=== PATIENT | male | born 1965 | race Caucasian/White ===

== ENCOUNTER 2021-01-29 20:52 | Emergency (ER) | payer SELFPAY ==
[2021-01-30] MEDS ORDERED: ACETAMINOPHEN 500 MG TAB PO ONE (02:48)
[2021-01-30] MEDS ORDERED: IBUPROFEN 600 MG TAB PO ONE (02:48)
[2021-01-30 03:19] LABS: Bilirubin,Urine NEG (Negative); Blood,Urine NEG (Negative); Color,Urine Yellow (Yellow); Mucus,Urine FEW /HPF; Protein,Urine <15 mg/dL mg/dL (Negative); RBC,Urine < 1.0 /HPF (0.0-6.0); Urobilinogen,Urine < 2.0 mg/dL (<2.0); WBC,Urine < 1.0 /HPF (0.0-6.0)
--- NOTE | 2021-01-30 03:45 | XRay Report ---
CHEST 2 VIEWS INDICATION / CLINICAL INFORMATION: Cough. COMPARISON: None available. FINDINGS: SUPPORT DEVICES: None. HEART / MEDIASTINUM: The heart size and pulmonary vasculature are normal. LUNGS / PLEURA: No significant pulmonary or pleural abnormality. No pneumothorax. ADDITIONAL FINDINGS: No significant additional findings. IMPRESSION: No acute findings. Signer Name: Michel Hyatt MD Signed: 01/30/2021 3:41 AM Workstation Name: [id number]
[2021-01-30 03:49] LABS: Basophils % (Auto) 0.4 % (0.0-1.8); Eosinophils # (Auto) 0.1 K/mm3 (0.0-0.4); Eosinophils % (Auto) 2.1 % (0.0-4.3); Lymphocytes # (Auto) 1.7 K/mm3 (1.2-5.4); Lymphocytes % (Auto) 29.5 % (13.4-35.0); Mean Corpuscular HGB Conc 30 % (32-34); Mean Corpuscular Volume 76 fl (84-94); Monocytes # (Auto) 0.4 K/mm3 (0.0-0.8); Monocytes % (Auto) 7.6 % (0.0-7.3); Platelet Count 225 K/mm3 (140-440); Red Cell Distribution Width 13.7 % (13.2-15.2)
[2021-01-30 03:52] LABS: Alanine Aminotransferase 14 units/L (7-56); Albumin 4.3 g/dL (3.9-5); BUN/Creatinine Ratio 19; Blood Urea Nitrogen 13 mg/dL (9-20); Calcium 9.2 mg/dL (8.4-10.2); Hemolysis Index 3
[2021-01-30 04:02] LABS: Hemoglobin 12.2 gm/dl (11.8-15.2)
[2021-01-30 04:03] LABS: Hematocrit 40.8 % (35.5-45.6)
--- NOTE | 2021-01-30 04:04 | Emergency Department Report ---
ED General Adult HPI - General Chief complaint: Extremity Injury, Lower Stated complaint: BILATERAL LEG SWELLING Source: EMS Mode of arrival: Ambulatory Limitations: No Limitations - History of Present Illness Initial comments: Patient is a 55-year-old -Prydeinig male with a history of hypertension, chronic osteoarthritis, [id number] diabetes who presents to the ED with complaint of acute exacerbation of his chronic pain characterized by bilateral lower extremity pain, ankle and foot joint pains, bilateral knee joint pain for the last 1 week. Patient states that he is homeless and rarely takes his medications. Patient denies dizziness, syncope, chest pain, shortness of breath, fever, chills, traumatic injury, heavy lifting, nausea and vomiting, numbness and tingling or weakness of lower extremities bilaterally. MD Complaint: Bilateral lower extremity joint pains; generalized weakness -: Sudden, week(s) (1) Location: back, upper extremity, lower extremity Radiation: back Severity scale (0 -10): 10 Quality: aching, sharp Consistency: constant Improves with: none Worsens with: movement Associated Symptoms: denies: denies other symptoms, confusion, chest pain, cough, diaphoresis, headaches, malaise, nausea/vomiting, seizure, shortness of breath, weakness, other Treatments Prior to Arrival: none - Related Data Previous Rx's Medication Instructions Recorded Last Taken Type Baclofen 20 mg PO Q12H PRN #20 tablet 01/30/21 Unknown Rx Naproxen 500 mg PO Q12H PRN #24 tablet 01/30/21 Unknown Rx Allergies Allergy/AdvReac Type Severity Reaction Status Date / Time No Known Allergies Allergy Unverified 01/29/21 21:01 ED Review of Systems ROS: Stated complaint: BILATERAL LEG SWELLING Other details as noted in HPI Constitutional: denies: chills, fever Eyes: denies: eye pain, eye discharge, vision change ENT: denies: ear pain, throat pain Respiratory: denies: cough, shortness of breath, wheezing Cardiovascular: denies: chest pain, palpitations Endocrine: no symptoms reported Gastrointestinal: denies: abdominal pain, nausea, diarrhea Genitourinary: denies: urgency, dysuria Musculoskeletal: back pain, joint swelling (Bilateral ankle and foot swelling), arthralgia (Bilateral knee pain), myalgia Skin: denies: rash, lesions Neurological: denies: headache, weakness, paresthesias Psychiatric: denies: anxiety, depression Hematological/Lymphatic: denies: easy bleeding, easy bruising ED Past Medical Hx - Past Medical History Hx Hypertension: Yes Hx Diabetes: Yes Hx Arthritis: Yes - Social History Smoking Status: Unknown if ever smoked Substance Use Type: Alcohol - Medications Home Medications: Home Medications Medication Instructions Recorded Confirmed Last Taken Type Baclofen 20 mg PO Q12H PRN #20 tablet 01/30/21 Unknown Rx Naproxen 500 mg PO Q12H PRN #24 tablet 01/30/21 Unknown Rx ED Physical Exam - General Limitations: No Limitations General appearance: alert, in no apparent distress - Head Head exam: Present: atraumatic, normocephalic, normal inspection - Eye Eye exam: Present: normal appearance, PERRL, EOMI Pupils: Present: normal accommodation - ENT ENT exam: Present: normal exam, normal orophraynx, mucous membranes moist, TM's normal bilaterally, normal external ear exam - Neck Neck exam: Present: normal inspection, full ROM - Respiratory Respiratory exam: Present: normal lung sounds bilaterally. Absent: respiratory distress, wheezes, stridor, chest wall tenderness, accessory muscle use, prolonged expiratory - Cardiovascular Cardiovascular Exam: Present: regular rate, normal rhythm, normal heart sounds. Absent: bradycardia, tachycardia, irregular rhythm, systolic murmur, diastolic murmur, rubs, gallop - GI/Abdominal GI/Abdominal exam: Present: soft, normal bowel sounds. Absent: tenderness, guarding, hyperactive bowel sounds, hypoactive bowel sounds, organomegaly, mass - Extremities Exam Extremities exam: Present: normal inspection, full ROM, normal capillary refill - Back Exam Back exam: Present: normal inspection, full ROM, tenderness, muscle spasm, paraspinal tenderness. Absent: CVA tenderness (L), vertebral tenderness - Neurological Exam Neurological exam: Present: alert, oriented X3, CN II-XII intact, normal gait, reflexes normal - Psychiatric Psychiatric exam: Present: normal affect, normal mood - Skin Skin exam: Present: warm, dry, intact, normal color. Absent: rash ED Course Vital Signs 01/29/21 01/30/21 01/30/21 21:01 03:03 03:04 Temperature 98.4 F Pulse Rate 88 Respiratory 18 18 18 Rate Blood Pressure 160/92 [Left] O2 Sat by Pulse 98 Oximetry ED Medical Decision Making - Lab Data Result diagrams: 01/30/21 03:05 01/30/21 03:05 - Radiology Data [facility] [address] [place] [address] XRay Report Signed Patient: CHRIS MAURO MR#: [id number] : 1965 Acct:[id number] Age/Sex: 55 / M ADM Date: 01/29/21 Loc: ED Attending Dr: Ordering Physician: CAMILA WILKES Date of Service: 01/30/21 Procedure(s): XR chest routine 2V Accession Number(s): [id number] cc: CAMILA WILKES Fluoro Time In Minutes: CHEST 2 VIEWS INDICATION / CLINICAL INFORMATION: Cough. COMPARISON: None available. FINDINGS: SUPPORT DEVICES: None. HEART / MEDIASTINUM: The heart size and pulmonary vasculature are normal. LUNGS / PLEURA: No significant pulmonary or pleural abnormality. No pneumothorax. ADDITIONAL FINDINGS: No significant additional findings. IMPRESSION: No acute findings. Signer Name: Michel Hyatt MD Signed: 01/30/2021 3:41 AM Workstation Name: [id number] Transcribed By: RT Dictated By: Michel Hyatt MD Electronically Authenticated By: Michel Hyatt MD Signed Date/Time: 01/30/21340 DD/ 9 TD/TT: - Medical Decision Making This is a 55-year-old -Prydeinig male with a history of hypertension, chronic osteoarthritis, [id number] diabetes who presents to the ED with complaint of acute exacerbation of his chronic pain characterized by bilateral lower extremity pain, ankle and foot joint pains, bilateral knee joint pain for the last 1 week. Patient states that he is homeless and rarely takes his medications. In the ED, patient is alert and oriented x3 and is not in any distress. Patient was treated for pain in the ED. Chest x-ray showed no acute cardiopulmonary abnormalities or pneumonitis. All lab test results were reviewed and are all nonactionable. Patient will discharge home on medications and advised to follow-up with his primary care physician in 5 to 7 days for reevaluation. Patient was advised return to the ED immediately if symptoms get worse. - Differential Diagnosis Muscle spasm; muscle strain; chronic pain; osteoarthritis; tendinitis Critical care attestation.: If time is entered above; I have spent that time in minutes in the direct care of this critically ill patient, excluding procedure time. ED Disposition Clinical Impression: Chronic idiopathic pain syndrome, Chronic radicular pain of lower back Disposition: 01 HOME / SELF CARE / HOMELESS Is pt being admited?: No Does the pt Need Aspirin: No Condition: Stable Instructions: Chronic Pain, Adult, Chronic Knee Pain, Adult, [id number], Chronic Back Pain, [id number] Additional Instructions: All lab test results were reviewed and are all are nonactionable. Therefore take medications as needed for pain, drink plenty of fluids and follow-up with your primary care physician in 5 to 7 days for reevaluation. Return to the ED immediately if symptoms get worse. Prescriptions: Baclofen 20 mg PO Q12H PRN #20 tablet PRN Reason: Muscle Spasm Naproxen 500 mg PO Q12H PRN #24 tablet PRN Reason: Pain , Severe (7-10) Time of Disposition: 04:02 Print Language: SLOVENIAN
[2021-01-30 05:34] VITALS: BP 151/80
== END 2021-01-30 04:10 | disposition home or self-care (01) ==
LOC: ED 20:52
DX: G89.4 Chronic pain syndrome (principal); M54.16 Radiculopathy, lumbar region; M25.562 Pain in left knee; M25.572 Pain in left ankle and joints of left foot; M25.571 Pain in right ankle and joints of right foot; I10 Essential (primary) hypertension; E11.9 Type 2 diabetes mellitus without complications; J45.909 Unspecified asthma, uncomplicated
CPT/HCPCS: 36415; 71046; 80053; 81001; 83880; 84484; 85025; 99284